=== PATIENT | female | born 1985 | race Caucasian/White ===

== ENCOUNTER 2017-05-09 21:42 | Emergency (ER) | payer OTHER ==
--- NOTE | ~2017-05-09 | EKG ---
PATIENT: ZOE SIMS UNIT #: [id number] Ventricular Rate: 96 BPM Atrial Rate: 96 BPM P-R Interval: 140 ms QRS Duration: 84 ms Q-T Interval: 350 ms QTC Calculation(Bezet): 442 ms P [place]: 77 degrees Calculated R [place]: 70 degrees Calculated T [place]: 28 degrees Diagnosis Line: Normal sinus rhythm Diagnosis Line: Normal ECG Diagnosis Line: No previous ECGs available Diagnosis Line: Confirmed by PAULINE HERNANDEZ MD ([id number]) on Diagnosis Line: 05/11/2017 7:13:53 AM INTERPRETING MD: MIGUELITO
--- NOTE | ~2017-05-09 | CR72 ---
[facility] A Service of [facility] RADIOLOGY TEXT RESULTS PATIENT: ZOE SIMS LOCATION: CFT[facility] : 89 UNIT #: [id number] AGE: [address]: Brittanie Dang APRN SEX: F ORDER DR: [id number] [facility] [address] [place], [place] [address] [id number] MR#: [id number] Acc #: [id number] NAME: ZOE SIMS : 1985 SEX: F STUDY DATE/TIME: 05/09/2017 23:07 UNIT: [facility] ROOM: STUDY DESCRIPTION: CR Chest Single View Portable Attending Physician: Brittanie Dang A.P.R.N. Ordering Physician: Brittanie Dang A.P.R.N. Primary Care Physician: Anil Raymond M.D. MEDICAL IMAGING REPORT This report is preliminary unless electronic signature is present EXAM Portable chest 05/09 at 23:07. INDICATIONS Chest pain, cough, congestion, shortness of air and sore throat for 2 weeks. COMPARISON 01/21/10 FINDINGS A single AP portable view of the chest shows both lungs to be clear. The heart is normal in size. The mediastinal contour is normal. No significant bone abnormalities are seen. IMPRESSION Normal portable chest. Dictated by... Saravanan Stein Jr., M.D. THIS IS AN ELECTRONICALLY VERIFIED REPORT Saravanan Stein Jr., M.D. at 05/10/2017 9:51 PM PEYMAN/jaziel TD: 05/10/2017 07:07 JOB #: [id number] MEDICAL IMAGING REPORT Page 1 of 1 COPY
[~2017-05-09 21:42] MED LIST: ALBUTEROL17 GM INH
== END 2017-05-10 00:10 | disposition home or self-care (01) ==
LOC: CED 21:42 → CFTX 21:42
DX: J02.9 Acute pharyngitis, unspecified (principal); J45.909 Unspecified asthma, uncomplicated; Z86.14 Personal history of Methicillin resistant Staphylococcus aureus infection; F17.210 Nicotine dependence, cigarettes, uncomplicated; Z88.1 Allergy status to other antibiotic agents
CPT/HCPCS: 71010; 87651; 93005; 99283